=== PATIENT | female | born 1960 ===

== ENCOUNTER 2016-11-27 07:47 | Day surgery (SDC) | payer OTHER ==
[2016-05-18 01:31] VITALS: BMI 25.2
[2016-11-27] MEDS ORDERED: Midazolam 2 MG/2 ML VIAL ONE (09:44)
[2016-11-27] MEDS ORDERED: Propofol 10 mg/ml Inj (20 ML) ONE ×2 (09:44→10:12)
--- NOTE | 2016-11-27 09:54 | CP.SDSHP ---
Same Day Surgery H & P - History Proposed Procedure: EGD/Colonoscopy Pre-Op Diagnosis: Abdominal pain / Constipation - Previous Medical/Surgical History Comments: chronic pain, narcotics - Allergies Allergies: Allergies ciprofloxacin [From Cipro] Allergy (Verified 07/25/15 10:28) RASH ciprofloxacin HCl [From Cipro] Allergy (Verified 07/25/15 10:28) RASH ketorolac tromethamine [From Toradol] Allergy (Verified 07/25/15 10:28) RASH seafood Adverse Reaction (Uncoded 11/27/16 08:48) RASH - Physical Exam General Appearance: nl Vital Signs: Vital Signs 11/27/16 08:45 Temperature 97.8 F Pulse Rate 80 Blood Pressure 151/65 H O2 Sat by Pulse 97 Oximetry Mental Status: Alert & Oriented x3 Neuro: WNL Heart: WNL Lungs: WNL GI: WNL - {Optional Preform as Required} Abdomen: WNL - Impression Impression: abdominal pain / constipation Pt. Evaluated Today:Candidate for Anesthesia & Procedure: Yes - Date & Time Date: 11/27/16 Time: 09:53 Short Stay Discharge - Short Stay Discharge Admitting Diagnosis/Reason for Visit: ABDOMINAL PAIN / DISTENTION / CONSTIPATION Disposition: HOME/ ROUTINE
[2016-11-27 11:52] VITALS: TEMP 97; O2SAT 100
[2016-11-27 11:56] VITALS: BP 115/68; PULSE 90; RESP 22
== END 2016-11-27 13:20 | disposition home or self-care (01) ==
LOC: C.ENDO 07:47
PROVIDERS: ATTEND Internal Medicine
DX: R10.84 Generalized abdominal pain (principal); K59.03 Drug induced constipation; R14.0 Abdominal distension (gaseous); K64.8 Other hemorrhoids; K29.70 Gastritis, unspecified, without bleeding
CPT/HCPCS: 43239; 45378; 88305; J2250; J2704; J3010

== ENCOUNTER 2017-04-20 17:34 | Observation (INO) | payer MEDICAID, OTHER ==
[2017-04-20 17:58] VITALS: BMI 24.5
--- NOTE | 2017-04-20 20:38 | C.PDOC ---
History Of Present Illness 56yo female with history of 3x strokes, adrenal tumor, hypertension, herniated disks and sciatica, presents to ED with complaints of abdominal pain present for the past 6 days associated with vomiting. She states the emesis is non bloody. Patient has not been able to tolerate PO intake. She had similar abdominal pain in February, and saw Dr. Rowan and was diagnosed with h.pylori and was placed on a 14 day course of antibiotics. She also has another complaints of pressure in her head and behind her left ear, going into her jaw. She reports associated dizziness and states symptoms have been ongoing for the past 2 weeks. She followed up with Dr. Alonzo and had labs done but she does not have her results yet. She denies any cough, nasal congestion, sore throat, chest pain, shortness of breath, palpitations. Time Seen by Provider: 04/20/17 19:56 Chief Complaint (Nursing): Abdominal Pain History Per: Patient History/Exam Limitations: no limitations Onset/Duration Of Symptoms: Days Location Of Pain/Discomfort: Diffuse Associated Symptoms: Nausea, Vomiting Past Medical History Reviewed: Historical Data, Nursing Documentation, Vital Signs Vital Signs: Last Vital Signs Temp 98.3 F 04/20/17 19:54 Pulse 81 04/20/17 19:54 Resp 20 04/20/17 19:54 BP 156/97 H 04/20/17 19:54 Pulse Ox 98 04/20/17 23:40 - Medical History PMH: Anxiety, Back Problems, CVA (3 times, 2000, 2001 and 2010 with residual left weakness ), Depression, Gastritis, Gall Bladder Disease, HTN, Hypercholesterolemia, Kidney Stones, Migraine, Chronic Kidney Disease, Chronic Pain Surgical History: Appendectomy, Cholecystectomy, Endoscopy, Tonsillectomy, C- Section - [facility] Procedures CLOSURE SKIN & SUBCUTANEOUS NEC (12/12/14) INJECT/INFUSE NEC (06/12/14) INTRODUCTION OF SERUM/TOX/VACCINE INTO MUSCLE, PERC APPROACH (12/15/14) Family History: States: Unknown Family Hx, Hypertension - Social History Hx Alcohol Use: No Hx Substance Use: No - Immunization History Hx Tetanus Toxoid Vaccination: (UTD) Hx Influenza Vaccination: No Hx Pneumococcal Vaccination: No Review Of Systems Except As Marked, All Systems Reviewed And Found Negative. Constitutional: Negative for: Fever, Chills ENT: Positive for: Other (pressure in left ear radiating to left jaw). Negative for: Nose Congestion, Throat Pain Cardiovascular: Negative for: Chest Pain Respiratory: Negative for: Cough, Shortness of Breath Gastrointestinal: Positive for: Nausea, Vomiting, Abdominal Pain Neurological: Positive for: Dizziness Physical Exam - Physical Exam Appears: Non-toxic Skin: Normal Color, Warm, Dry Head: Atraumatic, Normacephalic Eye(s): bilateral: Normal Inspection, PERRL, EOMI Ear(s): Left: Other (mastoid tenderness) Nose: Normal Oral Mucosa: Moist Neck: Normal ROM, Supple Chest: Symmetrical Cardiovascular: Rhythm Regular Respiratory: Normal Breath Sounds Gastrointestinal/Abdominal: Bowel Sounds, Soft, Tenderness (left sided tenderness) Extremity: Normal ROM, No Pedal Edema Neurological/Psych: Oriented x3 ED Course And Treatment - Laboratory Results Result Diagrams: 04/20/17 21:23 02 21:23 ECG: Interpreted By Me, Viewed By Me ECG Rhythm: Sinus Rhythm ECG Interpretation: Normal Interpretation Of ECG: Normal intervals, normal axis, t wave inversions at leads I, avl, v5, v6 Rate From EC O2 Sat by Pulse Oximetry: 98 (RA) Pulse Ox Interpretation: Normal Medical Decision Making Medical Decision Making: Impression: Abdominal pain and vomiting; left ear pain Plan: -- CT Head -- CT Abdomen -- Labs -- Meclizine 25 mg PO -- Pepcid 20 mg IVP -- Ultram 50 mg PO Discussed with Dr. Alonzo who will admit patient to med/surg observation for hypokalemia and abdominal pain. Disposition Discussed With Dr.: Krysta Alonzo Doctor Will See Patient In The: Hospital Counseled Patient/Family Regarding: Studies Performed, Diagnosis - Disposition Disposition: HOSPITALIZED Disposition Time: 23:37 Condition: FAIR Forms: [facility] (Kinyarwanda) - Clinical Impression Clinical Impression: Abdominal pain, Hypokalemia, Headache - Scribe Statement The provider has reviewed the documentation as recorded by the Michelleibe (Renetta Castillo) Provider Attestation: All medical record entries made by the Scribe were at my direction and personally dictated by me. I have reviewed the chart and agree that the record accurately reflects my personal performance of the history, physical exam, medical decision making, and the department course for this patient. I have also personally directed, reviewed, and agree with the discharge instructions and disposition.
[2017-04-20 21:20] LABS: SQUAMOUS EPITHIAL 2 /hpf (0-5); URINE BACTERIA RARE (<OCC); URINE BILIRUBIN NEGATIVE (NEGATIVE); URINE BLOOD NEGATIVE (NEGATIVE); URINE CLARITY Clear (Clear); URINE COLOR Straw (YELLOW); URINE GLUCOSE (UA) NORMAL (Normal); URINE LEUKOCYTE ESTERASE NEG Leu/uL (Negative); URINE NITRATE NEGATIVE (NEGATIVE); URINE PROTEIN NEGATIVE (NEGATIVE); URINE UROBILINOGEN NORMAL mg/dL (0.2-1.0)
[2017-04-20 21:31] LABS: BASO % 0.4 % (0.0-2.0); EOS % 0.7 % (0.0-4.0); HEMOGLOBIN 13.1 g/dL (11.0-16.0); LYMPH # 2.8 K/uL (1.0-4.3); LYMPH % 44.7 % (20.0-40.0); MEAN CELL VOLUME 88.4 fL (81.0-99.0); MEAN CORPUSCULAR HEMOGLOBIN 30.5 pg (27.0-31.0); MEAN CORPUSCULAR HGB CONC 34.5 g/dL (33.0-37.0); MEAN PLATELET VOLUME 9.5 fL (7.2-11.7); MONO # 0.5 K/uL (0.0-0.8); MONO % 8.6 % (0.0-10.0); NEUT # 2.9 K/uL (1.8-7.0); NEUT % 45.6 % (50.0-75.0); NRBC % 0.1 % (0.0-2.0); RBC 4.28 Mil/uL (3.80-5.20); RED CELL DISTRIBUTION WIDTH 14.3 % (11.5-14.5); WHITE BLOOD COUNT 6.3 K/uL (4.8-10.8)
[2017-04-20 21:44] LABS: ALB/GLOB RATIO 1.3 (1.0-2.1); ALBUMIN 4.3 g/dL (3.5-5.0); ALT/SGPT 32 U/L (9-52); AST/SGOT 27 U/L (14-36); BLOOD UREA NITROGEN 18 mg/dL (7-17); CALCIUM 9.9 mg/dl (8.6-10.4); GFR AFRICAN-AMERICAN > 60; GFR NON-AFRICAN AMERICAN > 60; LIPASE 124 U/L (23-300)
--- NOTE | 2017-04-20 23:00 | CT ---
EXAM: CT Head Without Intravenous Contrast CLINICAL HISTORY: 56 years old, female; Condition or disease; Headache; Headache not specified TECHNIQUE: Axial computed tomography images of the head/brain without intravenous contrast. All CT scans at this facility use one or more dose reduction techniques, viz.: automated exposure control; ma/kV adjustment per patient size (including targeted exams where dose is matched to indication; i.e. head); or iterative reconstruction technique. COMPARISON: No relevant prior studies available. FINDINGS: Brain: Mild atrophy. No intracranial hemorrhage. No mass. Few scattered foci of decreased attenuation within periventricular/subcortical white matter. Probable chronic lacunar infarcts within basal ganglia. Probable chronic lacunar infarct within RIGHT thalamus. No definite edema. Ventricles: No hydrocephalus. Bones/joints: No acute fracture. Several small lucent calvarial lesions, nonspecific. Subcentimeter fat density lesion within upper cervical canal, likely lipoma. Soft tissues: Unremarkable. Vasculature: Atherosclerotic disease of intracranial arteries. Sinuses: No acute sinusitis. Mastoid air cells: No mastoid effusion. Orbits: Unremarkable as visualized. IMPRESSION: 1. Nonspecific white matter changes. Acute infarction may be CT occult within first 24 hours. If a focal deficit persists, consider followup CT or MRI for further evaluation. 2. Incidental/non-acute findings are described above.
[2017-04-20] MEDS ORDERED: Potassium Chloride 20 mEq ER Tab PO ONE (23:04)
--- NOTE | 2017-04-20 23:06 | CT ---
EXAM: CT Abdomen and Pelvis With Intravenous Contrast CLINICAL HISTORY: 56 years old, female; Pain; Abdominal pain; Generalized; Additional info: Abd pain TECHNIQUE: Axial computed tomography images of the abdomen and pelvis with intravenous contrast. All CT scans at this facility use one or more dose reduction techniques, viz.: automated exposure control; ma/kV adjustment per patient size (including targeted exams where dose is matched to indication; i.e. head); or iterative reconstruction technique. Coronal and sagittal reformatted images were created and reviewed. CONTRAST: 100 mL of visipaque3 320 administered intravenously. COMPARISON: 09/18/2016 FINDINGS: Lower thorax: Minimal atelectasis/scarring. Small hiatal hernia. ABDOMEN: Liver: Mild intrahepatic ductal dilatation, increased from previous examination. Gallbladder and bile ducts: Cholecystectomy. Moderate extrahepatic ductal dilatation, up to 1.2 cm, increased from previous examination. Pancreas: No ductal dilation. No mass. Spleen: No splenomegaly. Adrenals: No mass. Kidneys and ureters: No mass. No hydronephrosis. Stomach and bowel: No definite mural thickening. No obstruction. Appendix: No findings to suggest acute appendicitis. PELVIS: Bladder: Unremarkable. Reproductive: Unremarkable as visualized. ABDOMEN and PELVIS: Intraperitoneal space: No significant fluid collection. No free air. Bones/joints: Probable bone islands. No acute fracture. Soft tissues: Unremarkable. Vasculature: [id number] atherosclerotic disease. No aneurysm. Lymph nodes: No pathologically enlarged lymph nodes. IMPRESSION: 1. Biliary ductal dilatation. Correlate with laboratory values. Consider MRCP. 2. Incidental/non-acute findings are described above.
[2017-04-20] MEDS: Potassium Chloride 20 mEq ER Tab PO SCH (23:29)
[2017-04-20] MEDS ORDERED: DiphenhydrAMINE 50 mg/ml Inj IM STA (23:35)
[2017-04-21] MEDS ORDERED: DiphenhydrAMINE 50 mg/ml Inj ONE (00:37)
[2017-04-21] MEDS: Oxycodone/Acetaminophen 5/325 mg Tab PO PRN ×2 (01:59→10:37)
--- NOTE | 2017-04-21 06:46 | CP.PCM.CON ---
<Edi Camargo - Last Filed: 04/21/17 09:42> History of Present Illness - History of Present Illness History of Present Illness: GI consult note: 56 F with PMHx of CVA x3, adrenal tumor, HTN, herniated discs present to the ED with abdominal pain. Pt states that the pain initially started 2-3 weeks ago and has gotten progressively worse. The pain is located in the LLQ, non radiating and 9/10 severity at its worse. She states that the pain is associated with nausea and non bloody non bilious vomiting. She also complains of some constipation. She states that the pain is worse when she eats food, and that she has been ahving mainly water for the past 2 days. Pt states that she similar episode in the past which she endoscopy done 11/2016 - showed gastritis and an H. pylori infection. She states that she was subsequently treated with antibiotics for 14 days and she was recently suppose to go for breath test but missed her appointment. In the ED labwork revealed patient was hypokalemic 2.8, CT abd& pelvis showed biliary ductal dilatation 1.2cm rec MRCP. GI team was consulted for biliary ductal dilation. 12 Point ROS performed and negative other than stated above PMH: as above PSHx: Cholecystectomy (5yo), Appendectomy >40 years ago, C- section Med: Refer to [facility] ALL: Cipro, ketorolac, seafood SH: smokes 2-3 cig daily x 15 years, Denies drinking, or recreational drugs FH: denies Endo Hx: EGD done 11/2016 - showed gastritis and an H. pylori infection, Colonoscopy: poor prep and internal hemorrhoids Review of Systems - Review of Systems All systems: reviewed and no additional remarkable complaints except Past Patient History - Infectious Disease Hx of Infectious Diseases: None - Tetanus Immunizations Tetanus Immunization: Unknown - Past Medical History & Family History Past Medical History?: Yes - Past Social History Smoking Status: Current Some Days Smoker - CARDIAC Hx Hypercholesterolemia: Yes Hx Hypertension: Yes - PULMONARY Hx Respiratory Disorders: No - NEUROLOGICAL Hx Migraine: Yes - HEENT Hx HEENT Problems: No - RENAL Hx Chronic Kidney Disease: Yes Hx Kidney Stones: Yes - ENDOCRINE/METABOLIC Hx Endocrine Disorders: No - HEMATOLOGICAL/ONCOLOGICAL Hx Blood Disorders: No - INTEGUMENTARY Hx Dermatological Problems: No - MUSCULOSKELETAL/RHEUMATOLOGICAL Hx Falls: No - GASTROINTESTINAL Hx Gall Bladder Disease: Yes Hx Gastritis: Yes - GENITOURINARY/GYNECOLOGICAL Hx Genitourinary Disorders: No - PSYCHIATRIC Hx Substance Use: No - SURGICAL HISTORY Hx Appendectomy: Yes Hx Cholecystectomy: Yes Hx Tonsillectomy: Yes Other/Comment: no further information given by patient - ANESTHESIA Hx Anesthesia: Yes Hx Anesthesia Reactions: No Hx Malignant Hyperthermia: No Meds Allergies/Adverse Reactions: Allergies Allergy/AdvReac Type Severity Reaction Status Date / Time ciprofloxacin [From Cipro] Allergy RASH Verified 04/20/17 17:58 ciprofloxacin HCl Allergy RASH Verified 04/20/17 17:58 [From Cipro] ketorolac tromethamine Allergy RASH Verified 04/20/17 17:58 [From Toradol] seafood AdvReac RASH Uncoded 04/20/17 17:58 - Medications Medications: Current Medications Cyclobenzaprine HCl (Flexeril) 10 mg PO Q8 PRN PRN Reason: Muscle pain Last Admin: 04/21/17 01:59 Dose: 10 mg Home Med (Zolpidem [Ambien]) 10 mg PO HS [facility] Potassium Chloride 20 meq/ (Sodium Chloride) 1,010 mls @ 100 mls/hr IV .Q10H6M [facility] Labetalol HCl (Trandate) 200 mg PO Q8 [facility] Nifedipine (Procardia Xl) 60 mg PO DAILY [facility] Ondansetron HCl (Zofran Inj) 8 mg IVP Q8 PRN PRN Reason: Nausea/Vomiting Oxycodone/Acetaminophen (Percocet 5/325 Mg Tab) 1 tab PO Q6H PRN PRN Reason: Pain, moderate (4-7) Stop: 04/24/17 01:14 Last Admin: 04/21/17 01:59 Dose: 1 tab Pantoprazole Sodium (Protonix Inj) 40 mg IVP Q12H [facility] Pneumococcal Polyvalent Vaccine (Pneumovax 23 Vaccine) 0.5 ml IM .ONCE ONE Stop: 04/23/17 10:01 Spironolactone (Aldactone) 50 mg PO DAILY [facility] Tramadol HCl (Ultram) 50 mg PO Q8 [facility] Physical Exam - Constitutional Appears: No Acute Distress - Head Exam Head Exam: ATRAUMATIC, NORMOCEPHALIC - Eye Exam Eye Exam: EOMI, PERRL - ENT Exam ENT Exam: Mucous Membranes Moist - Respiratory Exam Respiratory Exam: Clear to Auscultation Bilateral. absent: Rales, Rhonchi, Wheezes - Cardiovascular Exam Cardiovascular Exam: REGULAR RHYTHM, +S1, +S2 - GI/Abdominal Exam GI & Abdominal Exam: Normal Bowel Sounds, Soft, Tenderness. absent: Distended, Organomegaly Additional comments: Tenderness to LLQ - Extremities Exam Extremities exam: Negative for: calf tenderness, tenderness - Neurological Exam Neurological exam: Alert, Oriented x3 - Psychiatric Exam Psychiatric exam: Normal Mood - Skin Skin Exam: Dry, Warm Results - Vital Signs Recent Vital Signs: Last Vital Signs Temp 97.8 F 04/21/17 03:30 Pulse 74 04/21/17 03:30 Resp 20 04/21/17 03:30 BP 178/84 H 04/21/17 03:30 Pulse Ox 100 04/21/17 03:30 - Labs Result Diagrams: 04/20/17 21:23 04/20/17 21:23 Labs: Laboratory Results - last 24 hr 04/20/17 04/20/17 04/20/17 21:11 21:23 21:23 WBC 6.3 RBC 4.28 Hgb 13.1 Hct 37.9 MCV 88.4 MCH 30.5 MCHC 34.5 RDW 14.3 Plt Count 237 MPV 9.5 Neut % (Auto) 45.6 L Lymph % (Auto) 44.7 H Murray % (Auto) 8.6 Eos % (Auto) 0.7 Baso % (Auto) 0.4 Neut # (Auto) 2.9 Lymph # (Auto) 2.8 Murray # (Auto) 0.5 Eos # (Auto) 0.0 Baso # (Auto) 0.0 ESR 8 Sodium 138 Potassium 2.8 L Chloride 95 L Carbon Dioxide 30 Anion Gap 16 BUN 18 H Creatinine 0.9 Est GFR ( Amer) > 60 Est GFR (Non-Af Amer) > 60 Random Glucose 90 Calcium 9.9 Total Bilirubin 0.5 AST 27 ALT 32 Alkaline Phosphatase 116 Troponin I 0.0160 Total Protein 7.5 Albumin 4.3 Globulin 3.3 Albumin/Globulin Ratio 1.3 Lipase 124 Urine Color Straw Urine Clarity Clear Urine pH 6.0 Ur Specific [place] 1.006 Urine Protein Negative Urine Glucose (UA) Normal Urine Ketones Negative Urine Blood Negative Urine Nitrate Negative Urine Bilirubin Negative Urine Urobilinogen Normal Ur Leukocyte Esterase Neg Urine WBC (Auto) 1 Urine RBC (Auto) < 1 Ur Squamous Epith Cells 2 Ur Transition Epith Cell < 1 Urine Bacteria Rare Assessment & Plan - Assessment and Plan (Free Text) Assessment: 56 F with PMHx of CVA x3, adrenal tumor, HTN, herniated discs present to the ED with abdominal pain. CT abd & pelvis showed biliary ductal dilatation 1.2cm rec MRCP. 1. Biliary ductal dilatation 2. Abdominal pain with nausea and vomiting 3. Constipation - Follow up MRCP results - biliary ductal dilatation likely 2/2 to history of cholecystectomy or chronic opiates use - stable from prior imaging - No further plan unless MRCP shows significant findings - Bowel regimen for constipation with Miralax BID, Dulcolax 10mg PO x 1, and tap water enema - Protonix 40mg IVP BID - Anti-emetics PRN - Pain control - Encouraged and counseled on limiting opiates use as it can be contributing to the constipation - Replete electrolytes as needed - Reglan 10mg x 1 given in the ED - Cont to Monitor patient clinical course Case and plan was reviewed and discussed in detail with Dr Rowan. <Ralph Rowan - Last Filed: 04/21/17 11:24> Meds - Medications Medications: Current Medications Cyclobenzaprine HCl (Flexeril) 10 mg PO Q8 PRN PRN Reason: Muscle pain Last Admin: 04/21/17 10:27 Dose: 10 mg Home Med (Zolpidem [Ambien]) 10 mg PO [facility] Potassium Chloride 20 meq/ (Sodium Chloride) 1,010 mls @ 100 mls/hr IV .Q10H6M [facility] Labetalol HCl (Trandate) 200 mg PO Q8 [facility] Last Admin: 04/21/17 07:05 Dose: 200 mg Nifedipine (Procardia Xl) 60 mg PO DAILY [facility] Last Admin: 04/21/17 10:27 Dose: 60 mg Ondansetron HCl (Zofran Inj) 8 mg IVP Q8 PRN PRN Reason: Nausea/Vomiting Oxycodone/Acetaminophen (Percocet 5/325 Mg Tab) 1 tab PO Q6H PRN PRN Reason: Pain, moderate (4-7) Stop: 04/24/17 01:14 Last Admin: 04/21/17 10:37 Dose: 1 tab Pantoprazole Sodium (Protonix Inj) 40 mg IVP Q12H [facility] Last Admin: 04/21/17 10:26 Dose: 40 mg Pneumococcal Polyvalent Vaccine (Pneumovax 23 Vaccine) 0.5 ml IM .ONCE ONE Stop: 04/23/17 10:01 Polyethylene Glycol (Miralax) 17 gm PO BID [facility] Last Admin: 04/21/17 10:28 Dose: 17 gm Spironolactone (Aldactone) 50 mg PO DAILY [facility] Last Admin: 04/21/17 10:28 Dose: 50 mg Tramadol HCl (Ultram) 50 mg PO Q8 [facility] Last Admin: 04/21/17 07:06 Dose: 50 mg Results - Vital Signs Recent Vital Signs: Last Vital Signs Temp 98.1 F 04/21/17 08:05 Pulse 70 04/21/17 08:05 Resp 20 04/21/17 08:05 BP 184/115 H 04/21/17 08:05 Pulse Ox 100 04/21/17 08:05 - Labs Result Diagrams: 04/20/17 21:23 04/20/17 21:23 Labs: Laboratory Results - last 24 hr 04/20/17 04/20/17 04/20/17 21:11 21:23 21:23 WBC 6.3 RBC 4.28 Hgb 13.1 Hct 37.9 MCV 88.4 MCH 30.5 MCHC 34.5 RDW 14.3 Plt Count 237 MPV 9.5 Neut % (Auto) 45.6 L Lymph % (Auto) 44.7 H Murray % (Auto) 8.6 Eos % (Auto) 0.7 Baso % (Auto) 0.4 Neut # (Auto) 2.9 Lymph # (Auto) 2.8 Murray # (Auto) 0.5 Eos # (Auto) 0.0 Baso # (Auto) 0.0 ESR 8 Sodium 138 Potassium 2.8 L Chloride 95 L Carbon Dioxide 30 Anion Gap 16 BUN 18 H Creatinine 0.9 Est GFR ( Amer) > 60 Est GFR (Non-Af Amer) > 60 Random Glucose 90 Calcium 9.9 Total Bilirubin 0.5 AST 27 ALT 32 Alkaline Phosphatase 116 Troponin I 0.0160 Total Protein 7.5 Albumin 4.3 Globulin 3.3 Albumin/Globulin Ratio 1.3 Lipase 124 Urine Color Straw Urine Clarity Clear Urine pH 6.0 Ur Specific [place] 1.006 Urine Protein Negative Urine Glucose (UA) Normal Urine Ketones Negative Urine Blood Negative Urine Nitrate Negative Urine Bilirubin Negative Urine Urobilinogen Normal Ur Leukocyte Esterase Neg Urine WBC (Auto) 1 Urine RBC (Auto) < 1 Ur Squamous Epith Cells 2 Ur Transition Epith Cell < 1 Urine Bacteria Rare Attending/Attestation - Attestation I have personally seen and examined this patient.: Yes I have fully participated in the care of the patient.: Yes I have reviewed all pertinent clinical information: Yes Notes (Text): 04/21/17 11:22 56 year old female with h/o CVA, HTN, Herniated disc, chronic back pain on narcotics admitted with abdominal pain and constipation. 1. Biliary ductal dilatation 2. Abdominal pain 3. Constipation Plan: -CT/ MRI imaging reviewed, chronic biliary dilation in the setting of cholecystectomy and chronic narcotic use, without evidence of mass lesion -no further evaluation at this time -recommend minimize narcotics if possible -start aggressive bowel regimen for constipation -diet as tolerated
[2017-04-21] MEDS ORDERED: Bisacodyl 5mg EC Tab PO ONE (08:01)
[2017-04-21] MEDS ORDERED: Gadodiamide 287 mg/ml 20 ml IV ONE (09:23)
[2017-04-21] MEDS: NIFEdipine 60 mg ER Tab PO SCH (10:27)
[2017-04-21] MEDS: Potassium Chloride 20 mEq ER Tab PO SCH (10:27)
[2017-04-21] MEDS: POLYETHYLENE GLYCOL 3350 17 GM/Dose PACKET PO SCH ×2 (10:28→18:12)
--- NOTE | 2017-04-21 11:19 | MRI ---
MRI abdomen without/with IV contrast MRCP Indication: Biliary ductal dilatation. Technique: Multiplanar, multi sequence magnetic resonance images of the abdomen were obtained without and with the administration of intravenous gadolinium using a multi phase abdomen protocol. Rotating maximum intensity projection images of the biliary system were generated. A total of 967 images submitted for review Comparison: CT abdomen and pelvis with IV contrast performed 04/20/17 Findings: Cholecystectomy. Central intrahepatic biliary ductal dilatation. Dilated common bile duct measures approximately 11 mm in diameter with distal taper. Question filling defect at the distal CBD (series 7, image 13). The pancreatic duct does not appear dilated. 1.1 cm left adrenal gland lesion demonstrates dropout on of phase imaging consistent with an adenoma. The liver, spleen, pancreas, and right adrenal appear unremarkable. The kidneys enhance symmetrically. No hydronephrosis or obstructing calculus identified. No bulky adenopathy identified. Limited views of the inferior thorax appear unremarkable. Impression: Cholecystectomy. Central intrahepatic biliary ductal dilatation. Dilated common bile duct measures approximately 11 mm in diameter with distal taper. Questionable filling defect at the distal CBD favored to reflect artifact rather than stone. Correlate clinically. 1.1 cm left adrenal gland lesion demonstrates dropout on of phase imaging consistent with an adenoma.
[2017-04-22 08:06] LABS: ALB/GLOB RATIO 1.4 (1.0-2.1); ALBUMIN 3.5 g/dL (3.5-5.0); ALT/SGPT 25 U/L (9-52); AST/SGOT 17 U/L (14-36); BLOOD UREA NITROGEN 8 mg/dL (7-17); GFR AFRICAN-AMERICAN > 60; GFR NON-AFRICAN AMERICAN > 60
[2017-04-22] MEDS: NIFEdipine 60 mg ER Tab PO SCH ×3 (10:24→13:05)
[2017-04-22] MEDS: POLYETHYLENE GLYCOL 3350 17 GM/Dose PACKET PO SCH ×2 (10:24→18:09)
[2017-04-22] MEDS: Oxycodone/Acetaminophen 5/325 mg Tab PO PRN ×2 (10:34→18:08)
--- NOTE | 2017-04-22 10:34 | HP ---
HISTORY OF PRESENT ILLNESS: This is a 56-year-old female with history of multiple medical problems presented to emergency room with symptoms of abdominal pain and vomiting for 4 days duration. The patient was evaluated in the emergency room and she was found also to be hypokalemic. The patient was started on potassium supplement and admitted for further management. The patient also complained of constipation. CAT scan of the abdomen was done that showed mild dilatation of the common bile duct. The patient has been followed by Gastroenterology and she was recently diagnosed with H. pylori gastritis for which she was treated with antibiotics for 2 weeks. REVIEW OF SYSTEMS: The patient has also occasional headache. Other review of systems negative. ALLERGIES: NO KNOWN ALLERGY. MEDICATIONS: As per MAR. SOCIAL HISTORY: No history of smoking, EtOH, or substance abuse. FAMILY HISTORY: Noncontributory. PAST MEDICAL HISTORY: Hypertension, adrenal tumor, history of CVA, with no residual neurological deficits. PHYSICAL EXAMINATION: VITAL SIGNS: Blood pressure is 152/86, temperature 98.2, respiratory rate 20, and pulse 76. HEENT: Pupils equal, and reactive to light. Normal-appearing mucosa of the conjunctivae, oropharynx and nasal membrane mucosa. NECK: Supple. No JVD. No carotid bruit. No lymph node. No thyromegaly. CHEST/LUNGS: Bilateral symmetrical expansion. Good air exchange. No rales, no rhonchi. CARDIOVASCULAR SYSTEM: PMI not localized. S1, S2. No additional sounds. ABDOMEN: Normoactive bowel sounds. No tenderness. No organomegaly. No masses. EXTREMITIES: No cyanosis, no clubbing, no edema. PLASTIC MIXER: Alert, awake, and oriented x2. NEUROLOGIC: No neurological deficit could be appreciated. ASSESSMENT: 1. Abdominal pain and vomiting, likely secondary to gastritis. 2. Dilatation of the common duct could be secondary to narcotic use versus status post cholecystectomy. 3. Hypertension. 4. Hypokalemia. 5. Dehydration. PLAN: We will supplement the potassium and resume the patient's diet as tolerated, GI consult, and follow recommendations. Resume the patient's home medications. Krysta Alonzo MD
[2017-04-22] MEDS: Pantoprazole 40 mg EC Tab PO SCH ×2 (11:30→21:44)
--- NOTE | 2017-04-22 12:01 | CARD ---
APPROVED REPORT EKG Measurement Heart [id number] <Conclusion> Normal sinus rhythm ST & T wave abnormality, consider lateral ischemia Abnormal ECG
[2017-04-22] MEDS ORDERED: Potassium Chloride 20 mEq ER Tab PO ONE ×2 (14:24→19:00)
[2017-04-22] MEDS: Magnesium Sulfate 1 gm in D5W 1 GM/100 ML BAG IVPB SCH (22:45)
[2017-04-23] MEDS: Magnesium Sulfate 1 gm in D5W 1 GM/100 ML BAG IVPB SCH (00:11)
--- NOTE | 2017-04-23 04:08 | PN ---
DATE: 04/22/2017 DAILY PROGRESS NOTE SUBJECTIVE: The patient is seen today, 04/22/2017. She is not in any cardiopulmonary distress, but the patient feels generalized weakness. Potassium is 2.9. OBJECTIVE: VITAL SIGNS: Blood pressure is 157/94, temperature 98.0, respiratory rate 18, and pulse 75. HEENT: Pupils are equal and reactive to light. Normal-appearing mucosa of the conjunctivae, oropharynx and nasal membrane mucosa. NECK: Supple. No JVD. No carotid bruit. No lymph node. No thyromegaly. CHEST/LUNGS: Bilateral symmetrical expansion. Good air exchange. No rales. No rhonchi. CARDIOVASCULAR SYSTEM: PMI not localized. S1, S2. No additional sounds. ABDOMEN: Normoactive bowel sounds. No tenderness. No organomegaly. No masses. EXTREMITIES: No cyanosis, no clubbing, no edema. UPPER SHAPER: Alert, awake, oriented x2. No neurological deficit could be appreciated. ASSESSMENT: 1. Status post persistent vomiting and abdominal pain, likely gastritis. 2. Severe hypokalemia. 3. Hypomagnesemia. PLAN: We will supplement potassium and magnesium. Continue current antihypertensive medications including spirolactone, follow GI recommendations. Krysta Alonzo MD
[2017-04-23 04:49] VITALS: BP 109/67; PULSE 82; RESP 20; TEMP 97.9; O2SAT 97
[2017-04-23] MEDS: Oxycodone/Acetaminophen 5/325 mg Tab PO PRN (07:42)
[2017-04-23 07:58] LABS: BLOOD UREA NITROGEN 10 mg/dL (7-17); CALCIUM 8.8 mg/dl (8.6-10.4); GFR AFRICAN-AMERICAN > 60; GFR NON-AFRICAN AMERICAN > 60
[2017-04-23] MEDS ORDERED: Pneumococcal 23-Valent Vaccine IM ONE (10:00)
[2017-04-23] MEDS ORDERED: Influenza Vaccine 60 mcg/0.5 mL SYR (4YR UP) IM ONE (10:00)
[2017-04-23] MEDS: NIFEdipine 60 mg ER Tab PO SCH (11:00)
[2017-04-23] MEDS: Pantoprazole 40 mg EC Tab PO SCH (11:01)
[2017-04-23] MEDS: POLYETHYLENE GLYCOL 3350 17 GM/Dose PACKET PO SCH (11:01)
--- NOTE | 2017-04-23 13:50 | CP.PCM.PN ---
Subjective - Date & Time of Evaluation Date of Evaluation: 04/23/17 Time of Evaluation: 13:48 - Subjective Subjective: LABS REVIEWED---K LEVEL TODAY 4.0. MAG WAS REPLACED LAST NIGHT. PT STABLE, WAS AMBULATING IN ROOM WITHOUT ASSISTANCE EARLY THIS MORNING. CLEARED FOR D/C HOME TODAY PER DR. BOWMAN AND FOR 1 WK F/U. CLEARED YESTERDAY BY GI (FOR OUTPATIENT F/U). PT SEEN TO DISCUSS D/C PLAN HOWEVER SHE IS SLEEPING AND SNORING LOUDLY (GIVEN FLEXERIL PER RN YESENIA). WILL REVIEW D/C INFORMATION ONCE PT AWAKENS. FAMILY TO PICK HER UP TODAY. NEW RX LEFT IN CHART. NO FURTHER ORDERS. -FOLLOW UP WITH DR. BOWMAN IN HIS OFFICE WITHIN 5-7 DAYS OF DISCHARGE---CALL THE OFFICE TODAY TO MAKE YOUR APPOINTMENT. -FOLLOW UP WITH DR. HOOD IN HIS OFFICE WITHIN 7-10 DAYS OF DISCHARGE---CALL THE OFFICE TODAY TO MAKE YOUR APPOINTMENT. -CONTINUE HOME MEDICATIONS USUAL. -PRESCRIPTIONS GIVEN TO YOU UPON DISCHARGE INCLUDE THE FOLLOWIN) FLEXERIL 10 MG (MUSCLE RELAXER) BY MOUTH EVERY 12 HOURS (TWICE A DAY) ONLY NEEDED FOR MUSCULAR PAIN. 2) MIRALAX (LAXATIVE) RECOMMENDED BY DR. HOOD'S TEAM---USE TWICE A DAY 3) POTASSIUM SUPPLEMENT---TAKE ONCE A DAY FOR 5 DAYS. -FOR FURTHER CONCERNS OR QUESTIONS, CONTACT DR. BOWMAN' OFFICE. Objective - Vital Signs/Intake and Output Vital Signs (last 24 hours): Temp Pulse Resp BP Pulse Ox 97.9 F 82 20 109/67 97 04/23/17 04:05 04/23/17 04:05 04/23/17 04:05 04/23/17 04:05 04/23/17 04:05 - Medications Medications: Current Medications Cyclobenzaprine HCl (Flexeril) 10 mg PO Q8 PRN PRN Reason: Muscle pain Last Admin: 04/23/17 11:01 Dose: 10 mg Potassium Chloride 20 meq/ (Sodium Chloride) 1,010 mls @ 100 mls/hr IV .Q10H6M [facility] Last Admin: 04/23/17 05:24 Dose: Not Given Labetalol HCl (Trandate) 200 mg PO Q8 [facility] Last Admin: 04/23/17 13:25 Dose: 200 mg Nifedipine (Procardia Xl) 60 mg PO DAILY [facility] Last Admin: 04/23/17 11:00 Dose: 60 mg Ondansetron HCl (Zofran Inj) 8 mg IVP Q8 PRN PRN Reason: Nausea/Vomiting Oxycodone/Acetaminophen (Percocet 5/325 Mg Tab) 1 tab PO Q6H PRN PRN Reason: Pain, moderate (4-7) Stop: 04/24/17 01:14 Last Admin: 04/23/17 07:42 Dose: 1 tab Pantoprazole Sodium (Protonix Ec Tab) 40 mg PO Q12H [facility] Last Admin: 04/23/17 11:01 Dose: 40 mg Polyethylene Glycol (Miralax) 17 gm PO BID [facility] Last Admin: 04/23/17 11:01 Dose: 17 gm Potassium Chloride (K-Dur 20 Meq Er Tab) 20 meq PO ONCE ONE Stop: 04/23/17 23:01 Spironolactone (Aldactone) 50 mg PO DAILY [facility] Last Admin: 04/23/17 11:02 Dose: 50 mg Tramadol HCl (Ultram) 50 mg PO Q8 [facility] Last Admin: 04/23/17 05:31 Dose: 50 mg Zolpidem Tartrate (Ambien) 5 mg PO HS [facility] Last Admin: 04/22/17 21:43 Dose: 5 mg - Labs Labs: 04/20/17 21:23 04/23/17 06:27
[2017-04-23] MEDS ORDERED: Potassium Chloride 20 mEq ER Tab PO ONE (23:00)
--- NOTE | 2017-04-24 22:36 | DS ---
REASON FOR ADMISSION: This is a 56 years old female with history of multiple medical problems, who was admitted for abdominal pain, vomiting and hypokalemia. COURSE OF HOSPITALIZATION The patient was started on antiemetics as well as potassium supplement. The patient had a GI consult done by . The patient had an MRCP done for dilatation of her common bile duct. The patient's symptoms were improving and the patient was cleared by GI to be discharged and followed as an outpatient. FINAL DIAGNOSES: 1. Hypokalemia. 2. Hypomagnesemia. 3. Abdominal pain. 4. Hypertension. 5. History of adrenal tumor. 6. Status post cerebrovascular accident with no residual deficits. Krysta Alonzo MD
== END 2017-04-23 17:15 | disposition home or self-care (01) ==
LOC: C.ER 17:34 → C.9E 04-21 00:09 → C.6T 04-21 01:07
PROVIDERS: ADMIT Internal Medicine; ATTEND Internal Medicine
DX: E87.6 Hypokalemia (principal); E83.42 Hypomagnesemia; I10 Essential (primary) hypertension; E86.0 Dehydration; R10.9 Unspecified abdominal pain; K59.00 Constipation, unspecified; Z86.73 Personal history of transient ischemic attack (TIA), and cerebral infarction without residual deficits
CPT/HCPCS: 36415; 70450; 74177; 74183; 80048; 80053; 81001; 82948; 83690; 83735; 84484; 85025; 85651; 90471; 90674; 93005; 96361; 96365; 96372; 96375; 96376; 99285; A9579; C9113; G0378; J1200; J2765; J3475; J3480; J7040

== ENCOUNTER 2017-08-30 23:06 | Emergency (ER) | payer MEDICAID, OTHER ==
[2017-08-30 23:07] VITALS: BMI 24.5
[2017-08-30 23:20] VITALS: O2SAT 98
[2017-08-31 00:05] LABS: BASO % 0.4 % (0.0-2.0); EOS % 0.5 % (0.0-4.0); HEMOGLOBIN 11.8 g/dL (11.0-16.0); LYMPH # 2.6 K/uL (1.0-4.3); LYMPH % 35.6 % (20.0-40.0); MEAN CELL VOLUME 87.5 fL (81.0-99.0); MEAN CORPUSCULAR HEMOGLOBIN 29.8 pg (27.0-31.0); MEAN CORPUSCULAR HGB CONC 34.1 g/dL (33.0-37.0); MEAN PLATELET VOLUME 8.9 fL (7.2-11.7); MONO # 0.6 K/uL (0.0-0.8); MONO % 8.7 % (0.0-10.0); NEUT % 54.8 % (50.0-75.0); NRBC % 0.1 % (0.0-2.0); RBC 3.95 Mil/uL (3.80-5.20); RED CELL DISTRIBUTION WIDTH 13.3 % (11.5-14.5); WHITE BLOOD COUNT 7.4 K/uL (4.8-10.8)
--- NOTE | 2017-08-31 00:17 | C.PDOC ---
History Of Present Illness 57 y/o female presents to the ED complaining of diffuse bruising throughout her body for 2 weeks. Also complaining of chronic and generalized body pain. Both complaints have been going on for a while. She denies any recent trauma or fall. Of note, patient was registered at [facility] ED 1.5 hours prior to arrival at [facility]. She otherwise denies any fever, chills, chest pain, SOB, dizziness, lightheadedness, numbness, weakness, or acute injury. 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 ), Depression, Gastritis, Gall Bladder Disease, HTN, Hypercholesterolemia, Kidney Stones, Migraine, Chronic Kidney Disease, Chronic Pain Surgical History: Appendectomy, Cholecystectomy, Endoscopy, Tonsillectomy, C- Section - [facility] Procedures CLOSURE SKIN & SUBCUTANEOUS NEC (12/12/14) INJECT/INFUSE NEC (06/12/14) INTRODUCTION OF SERUM/TOX/VACCINE INTO MUSCLE, PERC APPROACH (12/15/14) Family History: States: Hypertension - Social History Hx Alcohol Use: No Hx Substance Use: No - Immunization History Hx Tetanus Toxoid Vaccination: (UTD) Hx Influenza Vaccination: No Hx Pneumococcal Vaccination: No Review Of Systems Except As Marked, All Systems Reviewed And Found Negative. Constitutional: Positive for: Other (generalized body pain). Negative for: Fever, Chills Cardiovascular: Negative for: Chest Pain, Light Headedness Respiratory: Negative for: Shortness of Breath Skin: Positive for: Bruising (throughout body) Neurological: Negative for: Weakness, Numbness, Dizziness Physical Exam - Physical Exam Appears: Non-toxic, No Acute Distress Skin: Warm, Dry, Ecchymosis (small ecchymoses noted to bilateral legs and left arm) Head: Atraumatic, Normacephalic Eye(s): bilateral: Normal Inspection, PERRL, EOMI Nose: Normal Oral Mucosa: Moist Neck: Normal ROM, Supple Chest: Symmetrical Cardiovascular: Rhythm Regular, No Murmur Respiratory: Normal Breath Sounds, No Rales, No Rhonchi, No Wheezing Gastrointestinal/Abdominal: Soft, No Tenderness, No Distention Back: Normal Inspection, No Vertebral Tenderness Extremity: Normal ROM, No Tenderness, Capillary Refill (less than 2 sec), No Deformity, No Swelling Pulses: Left Dorsalis Pedis: Normal, Right Dorsalis Pedis: Normal Neurological/Psych: Oriented x3, Normal Speech, Normal Motor, Normal Sensation, Normal Reflexes, Other (No focal deficits) Gait: Steady ED Course And Treatment - Laboratory Results Result Diagrams: 08/30/17 23:59 08/30/17 23:59 O2 Sat by Pulse Oximetry: 98 (RA) Pulse Ox Interpretation: Normal Medical Decision Making Medical Decision Making: Time: 23:37 Initial Plan: --CBC --CMP --PTT --Prothrombin time Labs reviewed, and are grossly normal. LFTs mildly elevated. Informed patient of all diagnostic results. Patient remains AAOx3, afebrile, in no acute distress, and is stable for discharge home. Disposition - Disposition Referrals: Krysta Alonzo MD [Staff Provider] - Disposition: HOME/ ROUTINE Disposition Time: 00:45 Condition: GOOD Additional Instructions: AMI DEAN, thank you for letting us take care of you today. Your provider was Barrington Lamar DO and you were treated for BODY PAIN. The emergency medical care you received today was directed at your acute symptoms. If you were prescribed any medication, please fill it and take as directed. It may take several days for your symptoms to resolve. Return to the Emergency Department if your symptoms worsen, do not improve, or if you have any other problems. Please contact your doctor or call one of the physicians/clinics you have been referred to that are listed on the Patient Visit Information form that is included in your discharge packet. Bring any paperwork you were given at discharge with you along with any medications you are taking to your follow up visit. Our treatment cannot replace ongoing medical care by a primary care provider outside of the emergency department. Thank you for allowing the [facility] team to be part of your care today. Follow up with Dr. Clinton this week for re-evaluation and further management. Instructions: Chronic Pain (DC) Forms: [facility] (Azeri) - Clinical Impression Clinical Impression: Chronic pain - Scribe Statement The provider has reviewed the documentation as recorded by the Scribe (Janay Milton) Provider Attestation: All medical record entries made by the Scribe were at my direction and personally dictated by me. I have reviewed the chart and agree that the record accurately reflects my personal performance of the history, physical exam, medical decision making, and the department course for this patient. I have also personally directed, reviewed, and agree with the discharge instructions and disposition.
[2017-08-31 00:19] LABS: BLOOD UREA NITROGEN 23 mg/dL (7-17); GFR AFRICAN-AMERICAN > 60; GFR NON-AFRICAN AMERICAN > 60; INR 1.1; PROTHROMBIN TIME 11.6 SECONDS (9.7-12.2)
[2017-08-31 00:20] LABS: ALB/GLOB RATIO 1.6 (1.0-2.1); ALBUMIN 4.5 g/dL (3.5-5.0); ALT/SGPT 89 U/L (9-52); AST/SGOT 107 U/L (14-36); CALCIUM 9.2 mg/dl (8.6-10.4)
[2017-08-31 01:01] VITALS: BP 158/82; PULSE 89; RESP 16; TEMP 98.8
== END 2017-08-31 01:03 | disposition home or self-care (01) ==
LOC: C.ER 23:06
DX: G89.29 Other chronic pain (principal)

== ENCOUNTER 2017-11-17 11:48 | Emergency (ER) | payer MEDICAID ==
[2017-11-17 12:07] VITALS: BMI 26.0
[2017-11-17 12:09] VITALS: BP 163/99; PULSE 101; RESP 20; TEMP 99; O2SAT 97
[2017-11-17] MEDS ORDERED: Hydrocodone/Acetaminophen 5 mg /300 mg Tab PO STA (12:24)
--- NOTE | 2017-11-17 12:27 | C.PDOC ---
History Of Present Illness 57 y/o female presents to the ED complaining of chronic and generalized body pain. Patient ran out of her pain medication and her pain management physician was on vacation, and has appointment for tomorrow. The patient states she could not wait for tomorrow and on her way to hospital she tripped and fell injuring her. She otherwise denies any fever, chills, chest pain, SOB, dizziness, lightheadedness, numbness, weakness. 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 ), Depression, Gastritis, Gall Bladder Disease, HTN, Hypercholesterolemia, Kidney Stones, Migraine, Chronic Kidney Disease, Chronic Pain Surgical History: Appendectomy, Cholecystectomy, Endoscopy, Tonsillectomy, C- Section - [facility] Procedures CLOSURE SKIN & SUBCUTANEOUS NEC (12/12/14) INJECT/INFUSE NEC (06/12/14) INTRODUCTION OF SERUM/TOX/VACCINE INTO MUSCLE, PERC APPROACH (12/15/14) Family History: States: Hypertension - Social History Hx Alcohol Use: No Hx Substance Use: No - Immunization History Hx Tetanus Toxoid Vaccination: (UTD) Hx Influenza Vaccination: No Hx Pneumococcal Vaccination: No Review Of Systems Except As Marked, All Systems Reviewed And Found Negative. Constitutional: Positive for: Malaise. Negative for: Fever, Chills Respiratory: Negative for: Shortness of Breath Neurological: Negative for: Weakness, Numbness, Dizziness Physical Exam - Physical Exam Appears: Non-toxic, No Acute Distress Skin: Normal Color, Warm, Dry, Other (superficial abrasion to left knee and chin ) Head: Atraumatic, Normacephalic Eye(s): bilateral: Normal Inspection, EOMI Nose: Normal Oral Mucosa: Moist Neck: Normal ROM Chest: Symmetrical Cardiovascular: Rhythm Regular, No Edema, No JVD Respiratory: Normal Breath Sounds, No Wheezing, No Plerual Rub Extremity: Bilateral: Atraumatic, Normal ROM Neurological/Psych: Oriented x3, Normal Speech ED Course And Treatment O2 Sat by Pulse Oximetry: 97 (RA) Pulse Ox Interpretation: Normal Medical Decision Making Medical Decision Making: Patient with chronic pain and needs refill of medication, unable to see pain management until tomorrow. Patient appears in no acute distress. Patient has no signs of acute injury suspicious for fracture. Explain to patient the narcotic pain protocol and that we will refill any narcotic meds. Will treat with one dose in ED. [facility] reviewed: 11/01/2017 TRAMADOL HCL 50 MG TABLET 60.0 10/04/2017 TRAMADOL HCL 50 MG TABLET 60.0 10/04/2017 HYDROCODONE-ACETAMIN 10-325 MG 60.0 09/20/2017 TRAMADOL HCL 50 MG TABLET 60.0 09/20/2017 HYDROCODONE-ACETAMIN 10-325 MG 60.0 09/20/2017 ZOLPIDEM TARTRATE 10 MG TABLET 30.0 Disposition Counseled Patient/Family Regarding: Diagnosis, Need For Followup - Disposition Referrals: Krysta Alonzo MD [Staff Provider] - Disposition: HOME/ ROUTINE Disposition Time: 12:27 Condition: STABLE Additional Instructions: Please follow up with your pain management doctor Instructions: Chronic Pain (DC) Forms: [facility] (Nepalese) - POA Present On Arrival: None - Clinical Impression Clinical Impression: Chronic pain - PA / LOCOMOTIVE OILER / Resident Statement MD/DO has reviewed & agrees with the documentation as recorded. - Scribe Statement The provider has reviewed the documentation as recorded by the Muriel Huang Provider Attestation All medical record entries made by the Muriel were at my direction and personally dictated by me. I have reviewed the chart and agree that the record accurately reflects my personal performance of the history, physical exam, medical decision making, and the department course for this patient. I have also personally directed, reviewed, and agree with the discharge instructions and disposition.
[2017-11-17] MEDS ORDERED: Hydrocodone/Acetaminophen 5 mg /300 mg Tab PO ONE (12:35)
== END 2017-11-17 13:03 | disposition home or self-care (01) ==
LOC: C.ER 11:48
DX: G89.29 Other chronic pain (principal)

== ENCOUNTER 2018-07-14 19:52 | Emergency (ER) | payer MEDICAID | END 2018-07-14 21:00 | disposition home or self-care (01) | LOC: C.ER 19:52 | DX: F11.10 Opioid abuse, uncomplicated (principal) ==